=== PATIENT | male | born 1970 | race Hispanic/Latino ===

== ENCOUNTER 2023-07-17 09:53 | Inpatient (IN) | payer BC, OTHER ==
[~2023-07-17] VITALS: Ht 177.8 cm; Wt 98.3 kg
[2023-07-17] MEDS ORDERED: HYDROMORPHONE 1 MG INJ IVP ONE (12:00)
[2023-07-17] MEDS ORDERED: LIDOCAINE HCL 1% 20 ML VIAL ONE (12:24)
[2023-07-17] MEDS ORDERED: MIDAZOLAM HCL 1 MG/ML 2ML VIAL ONE (12:46)
[2023-07-17] MEDS ORDERED: FENTANYL CITRATE PF 50 MCG/1 ML 2ML VIAL ONE (12:53)
[2023-07-17] MEDS ORDERED: MAG/ALUM/SIMETH 30 ML UDCUP PO PRN (13:30)
[2023-07-17] MEDS ORDERED: GUAIFENESIN-DM 200/20 MG 10 ML PO PRN (13:30)
[2023-07-17] MEDS ORDERED: DiphenhydrAMINE HCL 50 MG/ML VIAL IV PRN (13:30)
[2023-07-17] MEDS ORDERED: POTASSIUM CHLORIDE 10% ELIXIR 20 MEQ/15 ML UDCUP PO PRN (13:30)
[2023-07-17] MEDS ORDERED: POTASSIUM CHLORIDE 20MEQ/100ML 100 ML IV PRN (13:30)
[2023-07-17] MEDS ORDERED: ONDANSETRON 4MG INJ IV PRN (13:30)
[2023-07-17] MEDS ORDERED: NITROGLYCERIN 0.4 MG SL TAB SL PRN (13:30)
[2023-07-17] MEDS ORDERED: MAGNESIUM 2GM PREMIX 50ML 50 ML IV PRN (13:30)
[2023-07-17] MEDS ORDERED: DIPHENHYDRAMINE HCL 25 MG CAPSULE PO PRN (13:30)
[2023-07-17] MEDS ORDERED: ACETAMINOPHEN 325 MG TAB PO PRN ×2 (13:30)
[2023-07-17 14:03] LABS: BASOPHILS # (AUTO) 0.04 K/uL (0.00-0.20); BASOPHILS % (AUTO) 0.5 % (0.0-5.0); EOSINOPHILS # (AUTO) 0.01 K/uL (0.00-0.70); EOSINOPHILS % (AUTO) 0.1 % (0.0-8.0); HEMATOCRIT 43.5 % (42-54); IMMATURE GRANULOCYTE ABSOLUTE 0.02 K/uL (0-1); LYMPHOCYTES # (AUTO) 0.8 K/uL (1.0-4.8); LYMPHOCYTES % (AUTO) 9.4 % (21.0-51.0); MEAN CORPUSCULAR HEMOGLOBIN 30.6 pg (27.0-33.0); MEAN CORPUSCULAR HGB CONC 33.6 g/dL (32.0-36.0); MEAN CORPUSCULAR VOLUME 91.2 fL (79-99); MONOCYTES # (AUTO) 0.9 K/uL (0.1-1.0); MONOCYTES % (AUTO) 11.5 % (3.0-13.0); NEUTROPHILS # (AUTO) 6.3 K/uL (1.8-7.7); NEUTROPHILS % (AUTO) 78.3 % (40.0-77.0); PLATELET COUNT (AUTO) 271 K/uL (130-400); RED BLOOD CELL COUNT(AUTO) 4.77 MIL/uL (4.50-6.20); RED CELL DISTRIBUTION WIDTH 13.4 % (11.0-15.5); WHITE BLOOD COUNT (AUTO) 8.1 K/uL (4.8-10.8)
[2023-07-17 14:07] LABS: % IRON SATURATION 16.2 % (30-44)
[2023-07-17 14:09] LABS: INR < 0.93 (0.85-1.15); PROTHROMBIN TIME 10.3 SEC (9.6-11.6)
[2023-07-17 14:11] LABS: PARTIAL THROMBOPLASTIN TIME 28.8 SEC (26.3-35.5)
[2023-07-17 14:25] LABS: B-TYPE NATRIURETIC PEPTIDE 33 pg/mL (0-100)
[2023-07-17 14:33] LABS: ALBUMIN 3.6 g/dL (3.5-5.0); BILIRUBIN,TOTAL 0.9 mg/dL (0.2-1.0); MAGNESIUM 1.8 mg/dL (1.80-2.40); PHOSPHORUS 3.8 mg/dL (2.5-4.9); POTASSIUM 4.1 mmol/L (3.5-5.1); THYROID STIMULATING HORMONE 0.57 uIU/mL (0.36-3.74); TOTAL PROTEIN, SERUM 7.5 g/dL (6.0-8.3)
[2023-07-17] MEDS: HYDROCODONE/ACETAMINOPHEN 5/325 MG TAB PO PRN ×2 (14:37→20:00)
[2023-07-17] MEDS: 0.9%NACL 1000ML 1,000 ML IV SCH (14:37)
[2023-07-17] MEDS ORDERED: OMEP20CA12 PO (14:54)
[2023-07-17 17:00] VITALS: O2SAT 94
[2023-07-17] MEDS: HYDROMORPHONE 1 MG INJ IV PRN ×2 (17:48→23:32)
[2023-07-17 19:56] VITALS: O2SAT 96
[2023-07-17] MEDS: FAMOTIDINE 20MG TAB PO SCH (19:58)
[2023-07-17 20:08] VITALS: BP 146/92; PULSE 82; RESP 19
[2023-07-17] MEDS ORDERED: FAMOTIDINE 20MG VIAL IV PRN (21:00)
[2023-07-17 21:15] LABS: APPEARANCE,URINE CLEAR (CLEAR); BILIRUBIN,URINE NEGATIVE (NEGATIVE); COLOR,URINE YELLOW (YELLOW); GLUCOSE, URINE (UA) NEGATIVE (NEGATIVE); KETONES,URINE NEGATIVE (NEGATIVE); LEUKOCYTE ESTERASE ,URINE NEGATIVE Leu/uL (NEGATIVE); NITRATE,URINE NEGATIVE (NEGATIVE); PROTEIN,URINE 20 mg/dL (NEGATIVE); UROBILINOGEN,URINE 0.2 mg/dL (0.2-1.0)
[2023-07-17 21:17] LABS: ADD UA MICROSCOPIC YES
[2023-07-17 21:21] LABS: AMPHET/METH SCREEN,URINE NEGATIVE (NEGATIVE); BARBITURATE SCREEN, URINE NEGATIVE (NEGATIVE); BENZODIAZEPINES SCREEN,URINE POSITIVE (NEGATIVE); CANNABINOID SCREEN,URINE NEGATIVE (NEGATIVE); COCAINE SCREEN,URINE NEGATIVE (NEGATIVE); MUCUS,URINE RARE LPF (None Seen); OPIATE SCREEN,URINE POSITIVE (NEGATIVE); PHENCYCLIDINE SCREEN,URINE NEGATIVE (NEGATIVE); RBC,URINE 0-1 /HPF (0-1)
[2023-07-18] VITALS (9 sets, daily range): BP systolic 132–190; BP diastolic 68–99; PULSE 58–81; RESP 16–20; O2SAT 96–97
[2023-07-18] MEDS: 0.9%NACL 1000ML 1,000 ML IV SCH ×4 (01:08→20:51)
[2023-07-18] MEDS: HYDROCODONE/ACETAMINOPHEN 5/325 MG TAB PO PRN ×4 (03:04→21:05)
[2023-07-18 04:58] LABS: BASOPHILS # (AUTO) 0.05 K/uL (0.00-0.20); BASOPHILS % (AUTO) 0.8 % (0.0-5.0); EOSINOPHILS # (AUTO) 0.13 K/uL (0.00-0.70); HEMATOCRIT 38.8 % (42-54); IMMATURE GRANULOCYTE ABSOLUTE 0.02 K/uL (0-1); LYMPHOCYTES # (AUTO) 1.1 K/uL (1.0-4.8); LYMPHOCYTES % (AUTO) 16.6 % (21.0-51.0); MEAN CORPUSCULAR HEMOGLOBIN 30.7 pg (27.0-33.0); MEAN CORPUSCULAR HGB CONC 33.2 g/dL (32.0-36.0); MEAN CORPUSCULAR VOLUME 92.4 fL (79-99); MONOCYTES # (AUTO) 0.6 K/uL (0.1-1.0); MONOCYTES % (AUTO) 9.6 % (3.0-13.0); NEUTROPHILS # (AUTO) 4.7 K/uL (1.8-7.7); NEUTROPHILS % (AUTO) 70.7 % (40.0-77.0); PLATELET COUNT (AUTO) 259 K/uL (130-400); RED CELL DISTRIBUTION WIDTH 13.7 % (11.0-15.5); WHITE BLOOD COUNT (AUTO) 6.6 K/uL (4.8-10.8)
[2023-07-18 05:17] LABS: CREATININE 0.9 mg/dL (0.5-1.5); MAGNESIUM 2.1 mg/dL (1.80-2.40); PHOSPHORUS 2.9 mg/dL (2.5-4.9); POTASSIUM 3.4 mmol/L (3.5-5.1)
[2023-07-18] MEDS: HYDROMORPHONE 1 MG INJ IV PRN ×2 (05:31→11:22)
[2023-07-18] MEDS: FAMOTIDINE 20MG TAB PO SCH ×2 (08:50→20:57)
[2023-07-18] MEDS: HYDROMORPHONE 0.5 MG SYG (0.5MG/0.5ML) IVP PRN ×2 (16:15→22:29)
[2023-07-18] MEDS ORDERED: LABETALOL 20MG VIAL IV ONE (23:30)
[2023-07-19] VITALS (8 sets, daily range): BP systolic 152–172; BP diastolic 86–106; PULSE 69–80; RESP 17–19; O2SAT 95–96
[2023-07-19] MEDS: 0.9%NACL 1000ML 1,000 ML IV SCH ×3 (03:10→12:00)
[2023-07-19] MEDS: HYDROCODONE/ACETAMINOPHEN 5/325 MG TAB PO PRN ×4 (03:37→20:18)
[2023-07-19 05:07] LABS: BASOPHILS # (AUTO) 0.03 K/uL (0.00-0.20); BASOPHILS % (AUTO) 0.4 % (0.0-5.0); EOSINOPHILS # (AUTO) 0.27 K/uL (0.00-0.70); EOSINOPHILS % (AUTO) 3.9 % (0.0-8.0); HEMATOCRIT 38.7 % (42-54); IMMATURE GRANULOCYTE ABSOLUTE 0.03 K/uL (0-1); LYMPHOCYTES # (AUTO) 1.3 K/uL (1.0-4.8); LYMPHOCYTES % (AUTO) 18.4 % (21.0-51.0); MEAN CORPUSCULAR HEMOGLOBIN 30.3 pg (27.0-33.0); MEAN CORPUSCULAR HGB CONC 32.3 g/dL (32.0-36.0); MEAN CORPUSCULAR VOLUME 93.7 fL (79-99); MONOCYTES # (AUTO) 0.5 K/uL (0.1-1.0); NEUTROPHILS # (AUTO) 4.9 K/uL (1.8-7.7); NEUTROPHILS % (AUTO) 69.9 % (40.0-77.0); PLATELET COUNT (AUTO) 247 K/uL (130-400); RED BLOOD CELL COUNT(AUTO) 4.13 MIL/uL (4.50-6.20); RED CELL DISTRIBUTION WIDTH 13.3 % (11.0-15.5)
[2023-07-19 05:20] LABS: ALBUMIN 2.8 g/dL (3.5-5.0); BILIRUBIN,TOTAL 0.7 mg/dL (0.2-1.0); CREATININE 0.9 mg/dL (0.5-1.5); MAGNESIUM 1.8 mg/dL (1.80-2.40); POTASSIUM 3.6 mmol/L (3.5-5.1); TOTAL PROTEIN, SERUM 6.6 g/dL (6.0-8.3)
[2023-07-19] MEDS: KCL 20 MEQ ERTAB PO PRN ×2 (05:40→10:43)
[2023-07-19] MEDS ORDERED: MAGNESIUM 2GM PREMIX 50ML 50 ML IV PRN (07:00)
[2023-07-19] MEDS: FAMOTIDINE 20MG TAB PO SCH ×2 (07:47→20:17)
[2023-07-19] MEDS: HYDROMORPHONE 0.5 MG SYG (0.5MG/0.5ML) IVP PRN ×3 (11:54→23:06)
[2023-07-19] MEDS: LIDOCAINE 4% ADH..PATCH TP SCH (15:14)
[2023-07-20] VITALS (7 sets, daily range): BP systolic 144–171; BP diastolic 90–112; PULSE 72–82; RESP 18–20; O2SAT 95
[2023-07-20] MEDS: HYDROCODONE/ACETAMINOPHEN 5/325 MG TAB PO PRN ×4 (01:14→23:04)
[2023-07-20] MEDS: 0.9%NACL 1000ML 1,000 ML IV SCH (03:06)
[2023-07-20] MEDS: HYDROMORPHONE 0.5 MG SYG (0.5MG/0.5ML) IVP PRN ×4 (03:41→20:47)
[2023-07-20 04:34] LABS: BASOPHILS # (AUTO) 0.03 K/uL (0.00-0.20); BASOPHILS % (AUTO) 0.5 % (0.0-5.0); EOSINOPHILS # (AUTO) 0.29 K/uL (0.00-0.70); EOSINOPHILS % (AUTO) 4.6 % (0.0-8.0); HEMATOCRIT 38.1 % (42-54); IMMATURE GRANULOCYTE ABSOLUTE 0.04 K/uL (0-1); LYMPHOCYTES # (AUTO) 1.4 K/uL (1.0-4.8); MEAN CORPUSCULAR HEMOGLOBIN 30.9 pg (27.0-33.0); MEAN CORPUSCULAR HGB CONC 33.3 g/dL (32.0-36.0); MEAN CORPUSCULAR VOLUME 92.7 fL (79-99); MONOCYTES # (AUTO) 0.5 K/uL (0.1-1.0); MONOCYTES % (AUTO) 7.8 % (3.0-13.0); NEUTROPHILS # (AUTO) 4.1 K/uL (1.8-7.7); NEUTROPHILS % (AUTO) 64.5 % (40.0-77.0); PLATELET COUNT (AUTO) 279 K/uL (130-400); RED BLOOD CELL COUNT(AUTO) 4.11 MIL/uL (4.50-6.20); RED CELL DISTRIBUTION WIDTH 13.2 % (11.0-15.5); WHITE BLOOD COUNT (AUTO) 6.3 K/uL (4.8-10.8)
[2023-07-20 04:47] LABS: CREATININE 0.8 mg/dL (0.5-1.5); POTASSIUM 3.3 mmol/L (3.5-5.1)
[2023-07-20] MEDS: KCL 20 MEQ ERTAB PO PRN ×3 (06:47→11:55)
[2023-07-20] MEDS: FAMOTIDINE 20MG TAB PO SCH ×2 (07:39→20:45)
[2023-07-20] MEDS: LIDOCAINE 4% ADH..PATCH TP SCH (07:44)
[2023-07-20] MEDS ORDERED: ACET-2079 PO (11:09)
[2023-07-21] VITALS: BP 152/88; PULSE 70; RESP 18
[2023-07-21] MEDS: HYDROMORPHONE 0.5 MG SYG (0.5MG/0.5ML) IVP PRN (03:55)
[2023-07-21 04:00] VITALS: BP 159/94; PULSE 64; RESP 16
[2023-07-21 04:15] LABS: BILIRUBIN,TOTAL 0.5 mg/dL (0.2-1.0); MAGNESIUM 2.1 mg/dL (1.80-2.40); POTASSIUM 3.8 mmol/L (3.5-5.1); TOTAL PROTEIN, SERUM 7.3 g/dL (6.0-8.3)
[2023-07-21] MEDS: LACTULOSE 20 GM/30 ML UDCUP PO PRN ×2 (04:36→13:45)
[2023-07-21] MEDS: KCL 20 MEQ ERTAB PO PRN ×2 (04:36→08:39)
[2023-07-21 08:00] VITALS: BP 147/84; PULSE 66; RESP 18
[2023-07-21] MEDS: FAMOTIDINE 20MG TAB PO SCH (08:38)
[2023-07-21] MEDS: HYDROCODONE/ACETAMINOPHEN 5/325 MG TAB PO PRN ×3 (08:38→17:28)
[2023-07-21 11:56] VITALS: BP 126/77; PULSE 63; RESP 16
[2023-07-21] MEDS ORDERED: BACITRACIN 28.4 GM OINT TP SCH (14:00)
[2023-07-21 16:00] VITALS: BP 164/97; PULSE 68; RESP 18
== END 2023-07-21 18:05 | disposition home or self-care (01) | DRG 200 ==
LOC: EDH 09:53 → EDHIP 09:54 → 4CH 17:17
PROVIDERS: ADMIT Internal Medicine; ATTEND Internal Medicine
PROC: 0W9B30Z Drainage of Left Pleural Cavity with Drainage Device, Percutaneous Approach (ICD-10-PCS; principal; 2023-07-17)
DX: S27.0XXA Traumatic pneumothorax, initial encounter (principal); S22.42XA Multiple fractures of ribs, left side, initial encounter for closed fracture; J43.9 Emphysema, unspecified; K21.9 Gastro-esophageal reflux disease without esophagitis; I10 Essential (primary) hypertension; W01.190A Fall on same level from slipping, tripping and stumbling with subsequent striking against furniture, initial encounter; Y93.89 Activity, other specified; Y92.89 Other specified places as the place of occurrence of the external cause; Y99.8 Other external cause status; Z90.49 Acquired absence of other specified parts of digestive tract
CPT/HCPCS: 36415; 71045; 71110; 80048; 80053; 80305; 81001; 83540; 83550; 83605; 83735; 83880; 84100; 84443; 85025; 85610; 85730; 87040; G0378; J1170; J2250; J3010; J3475; J3490